=== PATIENT | female | born 1975 | race Two or more races ===

== ENCOUNTER 2022-05-01 11:36 | Outpatient (REF) | payer OTHER, SELFPAY ==
[2022-05-01 12:17] LABS: COVID-19 Test Positive (Negative)
== END 2022-05-01 11:37 | disposition home or self-care (01) ==
LOC: HO.LAB 11:36
PROVIDERS: Visit Provider Internal Medicine
DX: Z20.822 Contact with and (suspected) exposure to COVID-19 (principal)
CPT/HCPCS: 87635